=== PATIENT | female | born 1990 | race Caucasian/White ===

== ENCOUNTER → 2020-08-03 | Outpatient (CLI) | payer OTHER | END | disposition home or self-care (01) | LOC: CFH 07:10 | PROVIDERS: ATTEND Obstetrics & Gynecology | DX: N63.10 Unspecified lump in the right breast, unspecified quadrant (principal); Z84.81 Family history of carrier of genetic disease; Z80.3 Family history of malignant neoplasm of breast | CPT/HCPCS: 76642; 77066; G0279 ==